=== PATIENT | male | born 1960 | race Caucasian/White ===

== ENCOUNTER 2017-04-23 08:55 | Emergency (ER) | payer OTHER ==
[~2017-04-23] VITALS: Ht 180.3 cm; Wt 96.0 kg
[~2017-04-23 08:55] MED LIST: ASPIRIN81 M1 PO; BUPROPION XL150 MG; CYMBALTA30 MG; CYMBALTA30 MG PO; DEXILANT30 MG PO; HYZAAR 100-21 TABLET PO; LANSOPRAZOLE30 MG; MORPHINE SULFAT60 MG PO; OXYCODONE HCL30 MG; OXYCODONE HCL30 MG PO; WELLBUTRIN SR150 MG PO
[2017-04-23] MEDS ORDERED: NAPROSYN500 MG PO (10:27)
[2017-04-23 10:54] VITALS: BP 145/94
== END 2017-04-23 10:55 | disposition home or self-care (01) ==
LOC: EME 08:55
DX: M76.61 Achilles tendinitis, right leg (principal); K21.9 Gastro-esophageal reflux disease without esophagitis; Z87.891 Personal history of nicotine dependence
CPT/HCPCS: 73650; 99281; 99284

== ENCOUNTER 2018-04-04 10:04 | Emergency (ER) | payer OTHER ==
[~2018-04-04] VITALS: Ht 180.3 cm; Wt 89.8 kg
[~2018-04-04 10:04] MED LIST changes: +NAPROSYN500 MG PO
[2018-04-04] MEDS ORDERED: FLEXERIL10 MG PO (12:18)
[2018-04-04] MEDS ORDERED: KEFLEX500 MG PO (12:18)
[2018-04-04 12:50] VITALS: BP 125/79
== END 2018-04-04 12:50 | disposition home or self-care (01) ==
LOC: EME 10:04
DX: L03.032 Cellulitis of left toe (principal); S91.105A Unspecified open wound of left lesser toe(s) without damage to nail, initial encounter; G62.9 Polyneuropathy, unspecified; Z88.0 Allergy status to penicillin
CPT/HCPCS: 73630; 99281; 99284